=== PATIENT | female | born 1940 ===

== ENCOUNTER 2017-10-24 09:13 | Day surgery (SDC) | payer OTHER ==
[~2017-10-24 09:13] MED LIST: COZAAR100 MG PO; CRESTOR5 MG PO; DITROPAN XL10 MG PO; PROTONIX40 MG PO; ZANTAC300 MG PO
== END 2017-10-24 17:15 | disposition home or self-care (01) ==
LOC: CIR.AMB 09:13
DX: S52.531A Colles' fracture of right radius, initial encounter for closed fracture (principal)
CPT/HCPCS: 25609; 25118; 25280; C1776

== ENCOUNTER 2019-06-18 09:02 | Day surgery (SDC) | payer OTHER ==
[~2019-06-18 09:02] MED LIST changes: +CYMBALTA60 MG PO; +FIORICET PO; +PROTONIX40 M1 PO; +VASOFLEX D1 CA1 EACH PO; +VITAMIN D PO
== END 2019-06-18 20:25 | disposition home or self-care (01) ==
LOC: CIR.AMB 09:02
DX: S42.252A Displaced fracture of greater tuberosity of left humerus, initial encounter for closed fracture (principal); M75.122 Complete rotator cuff tear or rupture of left shoulder, not specified as traumatic
CPT/HCPCS: 23615; 23420; C1776